=== PATIENT | male | born 1945 | race Caucasian/White ===

== ENCOUNTER 2016-05-19 10:14 | Outpatient (CLI) | payer MEDICARE, OTHER ==
[2016-05-19 10:38] LABS: Hemoglobin A1c 5.9 % (4.0-6.0)
[2016-05-19 11:31] LABS: ALT (SGPT) 25 U/L (0-55); AST (SGOT) 30 U/L (5-34); Albumin 3.9 g/dL (3.4-4.8); Alkaline Phosphatase 118 U/L (40-150); Anion Gap 14 mmol/L (10-20); BUN (Urea Nitrogen) 13 mg/dL (8.4-25.7); Bilirubin, Total 2.1 mg/dL (0.2-1.2); Calc. Creatinine Clearance 0 mL/min (70-130); Calcium 9.2 mg/dL (7.8-10.44); Carbon Dioxide 25 mmol/L (23-31); Cardiac Risk 2.8 (Less than 4.5); Chloride 105 mmol/L (98-107); Cholesterol 122 mg/dL (< 200 Desired); Estimated GFR-MDRD Greater than 90; Globulin 2.7 g/dL (2.4-3.5); Glucose 134 mg/dL (80-115); HDL Cholesterol 44 mg/dL (>60 Neg Risk); LDL Cholesterol, Calculated 61 mg/dL; Potassium 3.9 mmol/L (3.5-5.1); Protein, Total 6.6 g/dL (5.8-8.1); Sodium 140 mmol/L (136-145); Triglycerides 86 mg/dL (Less than 150)
== END 2016-05-19 10:15 ==
LOC: MADLABBHPM 10:14
PROVIDERS: ATTEND Family Medicine
DX: E11.9 Type 2 diabetes mellitus without complications (principal)
CPT/HCPCS: 36415; 80053; 80061; 83036

== ENCOUNTER 2016-07-23 09:46 | Outpatient (CLI) | payer MEDICARE, OTHER ==
[2016-07-23 10:17] LABS: Anion Gap 13 mmol/L (10-20); BUN (Urea Nitrogen) 15 mg/dL (8.4-25.7); Calc. Creatinine Clearance 0 mL/min (70-130); Calcium 9.1 mg/dL (7.8-10.44); Carbon Dioxide 23 mmol/L (23-31); Chloride 106 mmol/L (98-107); Estimated GFR-MDRD Greater than 90; Glucose 155 mg/dL (80-115); Sodium 138 mmol/L (136-145)
== END 2016-07-23 09:47 | disposition home or self-care (01) ==
LOC: MADLAB 09:46
DX: N40.1 Benign prostatic hyperplasia with lower urinary tract symptoms (principal); K74.60 Unspecified cirrhosis of liver; K76.0 Fatty (change of) liver, not elsewhere classified
CPT/HCPCS: 36415; 80048; 84153

== ENCOUNTER 2016-09-07 14:56 | Outpatient (CLI) | payer MEDICARE, OTHER ==
[2016-09-07 15:31] LABS: Hemoglobin A1c 5.9 % (4.0-6.0)
[2016-09-07 15:42] LABS: Anion Gap 14 mmol/L (10-20); BUN (Urea Nitrogen) 10 mg/dL (8.4-25.7); Calc. Creatinine Clearance 0 mL/min (70-130); Calcium 8.7 mg/dL (7.8-10.44); Carbon Dioxide 24 mmol/L (23-31); Chloride 105 mmol/L (98-107); Estimated GFR-MDRD Greater than 90; Glucose 179 mg/dL (83-110); Potassium 3.5 mmol/L (3.5-5.1); Sodium 139 mmol/L (136-145)
[2016-09-07 17:09] LABS: Eosinophils 5 % (0-10); Hemoglobin 13.5 g/dL (14.0-18.0); Lymphocytes 22 % (21-51); MDiff Complete? YES; Mean Corpuscular HGB CONC 35.9 g/dL (32.0-36.0); Mean Corpuscular Volume 94.7 fl (80.0-94.0); Mean Platelet Volume 8.9 fL (7.4-10.4); Monocytes 9 % (0-10); Neutrophil 64 % (42-75); PLT Morphology Comment Appears Decreased; Platelet Count 51 thou/uL (130-400); RBC Distribution Width 12.7 % (11.5-14.5); Red Blood Cell (RBC) Count 3.96 mill/uL (4.70-6.10)
[2016-09-08 17:38] LABS: Creatinine, Urine 105.95 mg/dL (63-166); Microalbumin Urine 5.8 mg/dL (0.5-50.0); Microalbumin/Creat Ratio 54.7 mg/g (Less than 30)
== END 2016-09-07 14:57 | disposition home or self-care (01) ==
LOC: MADLABBHPM 14:56
PROVIDERS: ATTEND Family Medicine
DX: E11.9 Type 2 diabetes mellitus without complications (principal)
CPT/HCPCS: 36415; 80048; 82043; 83036; 85025